=== PATIENT | female | born 1980 | race Caucasian/White ===

== ENCOUNTER 2022-07-22 06:06 | Day surgery (SDC) | payer OTHER ==
[~2022-07-22] VITALS: Ht 157.5 cm; Wt 78.4 kg
[~2022-07-22 06:06] MED LIST: OXYC5 PO; TRAM50 PO
--- NOTE | 2022-07-22 08:31 | NUR ---
07/22/22 0831 GURJIT PATRICK PT PULSE ELEVATED WHILE DR. NATION AT BEDSIDE. [address] NATION ORDERED A BOLUS OF 500ML.
--- NOTE | 2022-07-22 08:31 | NUR ---
07/22/22 0831 Rhett Emmanuel FLUID DEFICIT OF 300 MLS NOTED, MDS AWARE.
--- NOTE | 2022-07-22 08:54 | NUR ---
07/22/22 0854 Noa Montanez PULSE DECREASES TO [address] NATION ORDER OF 500ML BOLUS OF LR.
== END 2022-07-22 09:00 | disposition home or self-care (01) ==
LOC: ORSCSDS 06:06
PROVIDERS: Obstetrics & Gynecology
PROC: 0U5B8ZZ Destruction of Endometrium, Via Natural or Artificial Opening Endoscopic (ICD-10-PCS; principal; 2022-07-22 07:30)
DX: N92.0 Excessive and frequent menstruation with regular cycle (principal); N94.6 Dysmenorrhea, unspecified
CPT/HCPCS: 88305; J0690; J1100; J1885; J2250; J2405; J2704; J3010; J7120